=== PATIENT | female | born 2000 | race Caucasian/White ===

== ENCOUNTER 2020-03-24 01:52 | Emergency (ER) | payer OTHER, SELFPAY ==
[2020-03-24 02:02] VITALS: BP 133/85; PULSE 91; RESP 16; TEMP 36.5; O2SAT 98
[2020-03-24 02:08] VITALS: RESP 16
--- NOTE | 2020-03-24 02:10 | ED.GENADUL_ITS ---
Discharge Plan Disposition Patient Disposition: HOME Condition: Good Discharge Details Chief Complaint: GenMedical Clinical Impression: Acute alcohol intoxication Primary Care Provider: None,None ED Provider: Fabiano Saldana Home Meds and New Rx's Prescriptions: Continued lamotrigine [Lamictal] 200 mg Tablet 200 mg PO DAILY RF: 0 methylphenidate HCl [Concerta] 54 mg Tablet Extended Release 24hr 54 mg PO DAILY RF: 0 quetiapine [Seroquel] 100 mg Tablet 150 mg PO QHS RF: 0 albuterol sulfate [ProAir HFA] 90 mcg/actuation Hfa Aerosol Inhaler 2 puff INHALATION QID PRNRF: 0 Discharge Instructions Instructions: Alcohol Intoxication (ED) Additional Instructions: At this time you are intoxicated with alcohol. The alcohol has likely caused mild alcoholic gastritis which caused the vomiting. You are currently not a toxic level of alcohol intoxication. It is important to rest, drink plenty of fluids, and avoid any alcohol for the next 48 hours at least. If you notice any worsening of your symptoms, or any new symptoms such as vomiting, diarrhea, fever, chills, shortness of breath, chest pain, numbness, weakness, or fainting , please return immediately to the emergency department for reevaluation. Please follow up with your primary care provider as soon as possible for reassessment and reevaluation. As always, it was a pleasure participating in your medical care today. Medical Decision Making 20-year-old female with a past medical history of allergy induced asthma, skin hypersensitivity disorder, anxiety and panic attack, presents today for evaluation of intoxication. Patient states that it was her 20st birthday yesterday, and according to the patient Jamaal wanted to make it the most special of days ever for her. Patient and HER-2 friends state that today she has had 2 hard mics lemonades, a couple shots harder alcohol, and then went with some other friends where she benefits more drinking. Her friends were there who stated that all friends were trustworthy people with no foul intentions. This evening the patient had one episode of vomiting, she took her nighttime medications of Seroquel Lamictal and Concerta. Jamaal her friend was concerned that she may be too intoxicated and she was brought to the ER for further assessment and medical evaluation to make sure that there would not be too much of an interaction between her medications and alcohol. Aside for this the patient has no other complaints. She denies any concerns of self-harm, or harm from others. She denies any homicidal or suicidal ideations. She denies any IV or illicit drug use tonight. No other complaints or modifying factors at this time. Physical exam demonstrates an intoxicated female with no other signs of significant concerning abnormal neurologic changes. No evidence of trauma, no trauma to the groin area, mouth or neck. Patient denies any IV or illicit drug use, in addition to this the patient's friends also deny any other substances of that nature. Patient blows 150 for her current alcohol level. This appears clinically identical to her current intoxicated state. No signs of overdose or severe iatrogenic reaction of her medications with the alcohol requiring contin ued observation or intervention. At this time the patient signs and symptoms are clinically consistent with mild intoxication. Patient will be discharged to the care of her friends, who after a prolonged discussion with them/Jamaal, seems generally concerned for the interesting wellbeing of the patient. They will monitor her closely throughout the night. The patient makes it clear that she feels very safe and content with this plan. I have extensively reviewed the treatment plan and discharge instructions with the patient and their friends. I have addressed all patient concerns at this time. The patient and friend was made aware of what symptoms to monitor for that would warrant a return to the emergency department. Discussed the plan with the patient and friend, they demonstrate verbal understanding and agreement with our assessment and plan at this time. HPI General Date/Time Provider Initiated Documentation: 03/24/20 01:58 . HPI Narrative: 20-year-old female with a past medical history of allergy induced asthma, skin hypersensitivity disorder, anxiety and panic attack, presents today for evaluation of intoxication. Patient states that it was her 20st birthday yesterday, and according to the patient Jamaal wanted to make it the most special of days ever for her. Patient and HER-2 friends state that today she has had 2 hard mics lemonades, a couple shots harder alcohol, and then went with some other friends where she benefits more drinking. Her friends were there who stated that all friends were trustworthy people with no foul intentions. This evening the patient had one episode of vomiting, she took her nighttime medications of Seroquel Lamictal and Concerta. Jamaal her friend was concerned that she may be too intoxicated and she was brought to the ER for further assessment and medical evaluation to make sure that there would not be too much of an interaction between her medications and alcohol. Aside for this the patient has no other complaints. She denies any concerns of self-harm, or harm from others. She denies any homicidal or suicidal ideations. She denies any IV or illicit drug use tonight. No other complaints or modifying factors at this time. Related Data Home Medications Medication Instructions Recorded Confirmed albuterol sulfate [ProAir HFA] 2 puff INHALATION QID PRN 03/24/20 03/24/20 lamotrigine [Lamictal] 200 mg PO DAILY 03/24/20 03/24/20 methylphenidate HCl [Concerta] 54 mg PO DAILY 03/24/20 03/24/20 quetiapine [Seroquel] 150 mg PO QHS 03/24/20 03/24/20 General Stated Complaint: GenMedical PÉREZ: 3 Review of Systems All systems reviewed & are unremarkable except as noted in HPI and below PFSH Social History Smoking/Tobacco Use Status: Current every day Tobacco Type: e-cigarettes Alcohol Intake: current Alcohol Intake frequency: holidays/special occasions only Drug use: Occasionally Substance use type: marijuana Do you feel safe at home: Yes Do you feel safe in your relationship?: Yes Exam Narrative Exam Narrative: 1.Const: Well-nourished, Well-developed, appearing stated age 2.Eyes: PERRL, no conjunctival injection, and symmetrical lids. 3.ENT: Atraumatic external nose and ears. Moist MM. Neck: Symmetric, trachea midline, No thyromegaly. 4.CVS: +S1/S2, No murmurs or gallops. Peripheral pulses 2+ and equal in all extremities. Brisk capillary refill in all extremities. 5.RESP: Unlabored respiratory effort. Clear to auscultation bilaterally. No wheezes rales or rhonchi 6.GI: Soft, Nontender/Nondistended, No hepatosplenomegaly. No guarding or rebound. 7.MSK: Normocephalic/Atraumatic, Extremities w/o deformity or ttp No cyanosis or clubbing, Normal movement of all extremities 8.Skin: Warm, Dry. No rashes or lesions. 9.Neuro: battery installer II-XII grossly intact. Sensation grossly intact, no focal neurologic deficits. Mildly intoxicated but no signs of significant ataxia, severely altered mental status, or concerning abnormality. 10.Psych: (AAO) x3. Appropriate mood and affect Course Vital Signs Vital signs: Vital Signs Temperature 36.5 C 03/24/20 02:02 Pulse 91 H 03/24/20 02:02 Respiratory Rate 16 03/24/20 02:02 Blood Pressure 133/85 03/24/20 02:02 Pulse Oximetry 98 03/24/20 02:02 Temperature 36.5 C 03/24/20 02:02 Temperature Source Skin 03/24/20 02:02 Pulse 91 H 03/24/20 02:02 Respiratory Rate 16 03/24/20 02:02 Blood Pressure 133/85 03/24/20 02:02 Blood Pressure Position Supine 03/24/20 02:02 Pulse Oximetry 98 03/24/20 02:02 Oxygen Delivery Method Room Air 03/24/20 02:02 Oxygen Flow Rate 0 03/24/20 02:02 Pain Level 0 03/24/20 02:02
== END 2020-03-24 02:20 | disposition home or self-care (01) ==
PROVIDERS: Emergency Provider Student in an Organized Health Care Education/Training Program
DX: F10.120 Alcohol abuse with intoxication, uncomplicated (principal); K29.20 Alcoholic gastritis without bleeding; R11.10 Vomiting, unspecified
CPT/HCPCS: 99282; 99283

== ENCOUNTER 2020-03-24 16:30 | Emergency (ER) | payer OTHER, SELFPAY ==
--- NOTE | 2020-03-24 16:32 | ED.GENADUL_ITS ---
Discharge Plan Disposition Patient Disposition: HOME Condition: Good Discharge Details Chief Complaint: Nausea/Vomit/Diar Clinical Impression: Nausea & vomiting Primary Care Provider: None,None ED Provider: Mary Mae Home Meds and New Rx's Prescriptions: New ondansetron 4 mg tablet,disintegrating 4 mg PO Q6H PRN (Reason: nausea and vomiting) Qty: 10 RF: 0 Continued lamotrigine [Lamictal] 200 mg Tablet 200 mg PO DAILY RF: 0 methylphenidate HCl [Concerta] 54 mg Tablet Extended Release 24hr 54 mg PO DAILY RF: 0 quetiapine [Seroquel] 100 mg Tablet 150 mg PO QHS RF: 0 albuterol sulfate [ProAir HFA] 90 mcg/actuation Hfa Aerosol Inhaler 2 puff INHALATION QID PRNRF: 0 Discharge Instructions Instructions: Acute Nausea and Vomiting (ED) Additional Instructions: Please continue to encourage frequent sips of fluids. You may use the Zofran as prescribed to help with any recurrent nausea or vomiting. Discharge Data Discharge Date/Time-TO BE ENTERED AT DEPARTURE: 03/24/20 17:30 Medical Decision Making Patient is a pleasant 20-year-old female presents today with chief complaint of hangover. She was seen here around 2 AM when she was acutely intoxicated. States that since that time she has vomited approximately 5 times. She states she is able to keep down some fluids in between these episodes. Has not had much of an appetite. She denies any headache. No abdominal pain. Denies any melena, hematochezia or hematemesis. She is concerned with the persistent vomiting. Patient has past medical history significant for asthma, skin hypersensitivity disorder, anxiety. Patient states that last night was her first time she never been intoxicated as heavily as she was. She denies any chest pain, difficulty breathing, shortness of breath. On exam, she appears nontoxic. She does appear slightly dry. Normal lung exam. Normal cardiac exam. Abdomen is nontender and benign. Patient I discussed treatment options. Patient is very anxious and does not want to have any IVs placed, no hydration. Discussed treatment options. I do feel that ODT Zofran is best option for her. She does not appear acutely ill. She slightly tachycardic but otherwise stable. She was given return precautions. Encouraged follow-up with primary care. Encouraged that she abstain from large quantities of alcohol in the future. Patient feels improved after zofran, able to take sips of fluids. Will have her continue with this as needed. Encourage hydration. Return precautions discussed. All of her questions and concerns were adddressed, she is in agreement with this plan. HPI General Mode of arrival: ambulatory . Date/Time Provider Initiated Documentation: 03/24/20 16:32 . Limitations to Documentation: no limitations . Information obtained by: patient and RN notes reviewed . History of Present Illness 20 year old F presents to the emergency department with the chief complaint of nausea and vomiting, described as moderate, and is localized to the abdomen. Patient started experiencing this hour(s) (began very early this morning) and it has been constant. No relieving factors improve symptom(s), No exacerbating factors reported . Patient notes no other symptoms.. Patient did receive the following treatments prior to arrival, none Related Data Home Medications Medication Instructions Recorded Confirmed albuterol sulfate [ProAir HFA] 2 puff INHALATION QID PRN 03/24/20 03/24/20 lamotrigine [Lamictal] 200 mg PO DAILY 03/24/20 03/24/20 methylphenidate HCl [Concerta] 54 mg PO DAILY 03/24/20 03/24/20 ondansetron 4 mg PO Q6H PRN #10 tab 03/24/20 quetiapine [Seroquel] 150 mg PO QHS 03/24/20 03/24/20 Previous Rx's Medication Instructions Recorded ondansetron 4 mg PO Q6H PRN #10 tab 03/24/20 Allergies Allergy/AdvReac Type Severity Reaction Status Date / Time No Known Allergies Allergy Unverified 03/24/20 16:38 General PÉREZ: 3 Review of Systems Constitutional Constitutional: Reports as per HPI, Denies chills, Denies fatigue, Denies fever(s) and Denies headache(s) ENT Ears, Nose, Mouth, and Throat: Denies headache(s) Cardiovascular Cardiovascular: Reports as per HPI, Denies chest pain and Denies dyspnea Respiratory Respiratory: Reports as per HPI, Denies cough and Denies dyspnea Gastrointestinal Gastrointestinal: Reports as per HPI Musculoskeletal Musculoskeletal: Reports as per HPI and Denies back pain Integumentary/Breasts Skin/Breast: Reports as per HPI and Denies rash Neurologic Neurologic: Reports as per HPI and Denies headache(s) Endocrine Endocrine: Denies fatigue [facility] Social History Smoking/Tobacco Use Status: Current every day Tobacco Type: e-cigarettes Alcohol Intake: current Alcohol Intake frequency: holidays/special occasions only Drug use: Occasionally Substance use type: marijuana Do you feel safe at home: Yes Do you feel safe in your relationship?: Yes Exam Const General: cooperative, healthy appearing, comfortable, no acute distress and well developed Nutritional Appearance: average body habitus and well nourished Orientation: alert and awake HENTN Head: normal to inspection Mouth: moist mucous membranes Resp Effort & Inspection: normal respiratory effort, able to speak in complete sentences and no respiratory distress Auscultation: clear to auscultation bilaterally, no rales, no rhonchi and no wheezes Cardio Rate: regular rate Rhythm: regular rhythm Heart Sounds: S1 normal and S2 normal GI Inspection: normal to inspection Palpation: soft Percussion: normal to percussion Auscultation: normal bowel sounds Back/Spine/Pelvis Back: no CVA tenderness Skin General skin exam: no rashes or lesions noted Trauma: no lacerations or abrasions Neuro General: patient alert and patient awake Cognition: normal cognition Speech: speech normal Gait: normal gait Psych Appearance: grossly normal and well kempt Mental Status: mental status grossly normal Speech and Movement: speech and movement normal
[2020-03-24 16:33] VITALS: BP 136/73; PULSE 93; RESP 12; TEMP 36.7; O2SAT 98
[2020-03-24] MEDS: Ondansetron O.D.T. 4 MG TABEF PO (16:49)
== END 2020-03-24 17:30 | disposition home or self-care (01) ==
PROVIDERS: Emergency Provider Physician Assistant
DX: R11.2 Nausea with vomiting, unspecified (principal); F10.129 Alcohol abuse with intoxication, unspecified; E86.0 Dehydration
CPT/HCPCS: 99283

== ENCOUNTER 2022-05-30 08:38 | Emergency (ER) | payer OTHER, SELFPAY ==
[2022-05-30 08:53] VITALS: BP 128/76; PULSE 105; RESP 18; TEMP 38.5; O2SAT 99
--- NOTE | 2022-05-30 10:30 | DI.RAD_ITS ---
Exam(s) XR FEMUR RT EXAM: XR FEMUR RT CLINICAL HISTORY: bruise R thigh, r/o fx. TECHNIQUE: 2D digital imaging was performed. AP and lateral views. COMPARISON: No exams were available for comparison FINDINGS: BONES: No acute fracture is present. No bony destructive lesion is seen. Visualized portion of knee a nd hip joints are unremarkable. SOFT TISSUE: Normal. IMPRESSION: Unremarkable radiographs of the right femur. DATA REPOSITORY: RADIATION DOSE DELIVERED:
[2022-05-30] MEDS: Acetaminophen 500 MG TAB 1000 MG PO (11:30)
[2022-05-30] MEDS: Ibuprofen 600 MG TAB PO (11:31)
--- NOTE | 2022-05-30 12:26 | ED.GENADUL_ITS ---
Discharge Plan Disposition Patient Disposition: HOME Condition: Stable Discharge Details Clinical Impression: Exudative pharyngitis, Contusion of right thigh Primary Care Provider: Melissa,Local ED Provider: Isamar Petersen Home Meds and New Rx's Prescriptions: New amoxicillin 500 mg capsule 500 mg PO BID 10 Days Qty: 20 0RF Continued lamotrigine [Lamictal] 200 mg Tablet 200 mg PO DAILY methylphenidate HCl [Concerta] 54 mg Tablet Extended Release 24hr 54 mg PO DAILY quetiapine [Seroquel] 100 mg Tablet 150 mg PO QHS albuterol sulfate [ProAir HFA] 90 mcg/actuation Hfa Aerosol Inhaler 2 puff INHALATION QID PRN lorazepam 0.5 mg Tablet 0.5 mg PO PRN PRN ondansetron 4 mg tablet,disintegrating 4 mg PO Q6H PRN (Reason: nausea and vomiting) Qty: 10 0RF Discharge Instructions Instructions: Pharyngitis (ED), Contusion in Adults (ED) Additional Instructions: Your rapid strep, COVID and influenza tests today are negative. You still may have another form of strep throat which is a bacterial infection treated with antibiotics. You could also have mononucleosis which is a viral infection. You also potentially still could have COVID as COVID tests can be false negative. Your x-ray today shows no evidence of fracture. Drink plenty of fluids and get plenty of rest. Alternate tylenol and motrin as needed and directed for pain. A prescription for antibiotics has been sent electronically to your pharmacy to take as directed until finished. Follow-up with your primary care doctor in 1 week. Return to the emergency department with any worsening or new concerning symptoms. Discharge Data Discharge Date/Time-TO BE ENTERED AT DEPARTURE: 05/30/22 13:04 Discharge Physician: Isamar Petersen Medical Decision Making 22-year-old female presents with right thigh pain after caught her pants on a fe nce while jumping over it 2 days ago. She is also complaining of fever, body aches, headache and sore throat this morning. Temp 101.3 on arrival. Heart rate 105. Oxygen saturation respiratory rate within normal limits. Patient appears comfortable and nontoxic. She is speaking in full sentences without drooling, trismus or submandibular swelling. She does have bilateral tonsillar edema, erythema and exudates. Lungs are clear bilaterally. No meningeal signs. Right medial thigh has an area of ecchymosis approximately 4 x 10 cm extending from proximal to mid thigh. There is no deformity or evidence of cellulitis or rash. Patient referred for right femur x-ray which was negative. Suspect a contusion. SARS Covid antigen test negative for COVID and influenza. Rapid strep negative. Discussed with patient that her presentation could be consistent with mono but she is declining mono screening blood test as she states she is afraid of needles. Discussed other possibilities still include COVID or strep pharyngitis B, C or G. Will cover with antibiotics for possibility of another type of strep. Discussed possibility of rash in setting of antibiotics with a possible diagnosis of mononucleosis. Throat culture pending. Advised to push fluids, rest, alternate Tylenol and Motrin. Advised to apply ice to her right thigh. Advised to follow up with the primary care doctor for re-evaluation. Usual and customary return precautions given prior to discharge. Medical Records Medical records reviewed: Yes I reviewed the patient's medical records. Imaging Data Radiologic Study: Radiologist's impression: ?XR FEMUR RT CLINICAL HISTORY:? bruise R thigh, r/o fx. TECHNIQUE:? 2D digital imaging was performed.? AP and lateral views. COMPARISON:? No exams were available for comparison FINDINGS: BONES: No acute fracture is present. No bony destructive lesion is seen. Visualized portion of knee and hip joints are unremarkable. SOFT TISSUE: Normal. IMPRESSION: Unremarkable radiographs of the right femur. Lab Data Lab results reviewed: Yes I reviewed the patient's lab results. Labs: 05/30/22 09:47 Pharynx Group A Streptococcus Culture - Pending HPI General Mode of arrival: ambulatory . Date/Time Provider Initiated Documentation: 05/30/22 09:49 . Limitations to Documentation: no limitations . Information obtained by: patient . HPI Narrative: Patient is a 22-year-old female who presents with right thigh injury after her thigh was caught on a fence while jumping over it 2 days ago. She is also complaining of feeling feverish, headache, sore throat and body aches since earlier this morning. She has not taken any Tylenol or ibuprofen. She denies any known exposure to mononucleosis. She states she has been able to ambulate on her leg but with pain. Related Data Home Medications Medication Instructions Recorded Confirmed albuterol sulfate 90 mcg/actuation 2 puff inhalation QID PRN 03/24/20 05/30/22 aerosol inhaler (ProAir HFA) lamotrigine 200 mg tablet 200 mg PO DAILY 03/24/20 05/30/22 (Lamictal) methylphenidate HCl 54 mg 54 mg PO DAILY 03/24/20 05/30/22 tablet,extended release 24 hr (Concerta) ondansetron 4 mg disintegrating 4 mg PO Q6H PRN nausea and 03/24/20 05/30/22 tablet vomiting #10 tabs quetiapine 100 mg tablet (Seroquel) 150 mg PO QHS 03/24/20 05/30/22 amoxicillin 500 mg capsule 500 mg PO BID 10 days #20 caps 05/30/22 lorazepam 0.5 mg tablet 0.5 mg PO PRN PRN 05/30/22 05/30/22 Previous Rx's Medication Instructions Recorded ondansetron 4 mg disintegrating 4 mg PO Q6H PRN nausea and 03/24/20 tablet vomiting #10 tabs amoxicillin 500 mg capsule 500 mg PO BID 10 days #20 caps 05/30/22 Allergies Allergy/AdvReac Type Severity Reaction Status Date / Time No Known Allergies Allergy Unverified 05/30/22 08:57 General Stated Complaint: GenMedical PÉREZ: 4 Review of Systems All systems reviewed & are unremarkable except as noted in HPI and below Constitutional Constitutional: Reports as per HPI, Reports body ache(s), Denies chills, Reports fever(s) and Reports headache(s) Eyes Eyes: Denies blurry vision ENT Ears, Nose, Mouth, and Throat: Denies dizziness, Reports headache(s), Reports sore throat and Denies throat swelling Cardiovascular Cardiovascular: Denies chest pain and Denies dyspnea Respiratory Respiratory: Denies cough and Denies dyspnea Gastrointestinal Gastrointestinal: Denies abdominal pain, Denies diarrhea and Denies vomiting Genitourinary Genitourinary: Denies hematuria and Denies dysuria Musculoskeletal Musculoskeletal: Denies back pain and Denies numbness Comments: Right thigh pain Integumentary/Breasts Skin/Breast: Denies lesions and Denies rash Neurologic Neurologic: Denies dizziness, Reports headache(s), Denies localized weakness and Denies numbness Allergic/Immunologic Allergic/Immunologic: Denies throat swelling PFSH All Active Problems (Updated 05/30/22 @ 12:52 by Isamar Petersen DO) Exudative pharyngitis (Acute) Contusion of right thigh (Acute) Medical History (Updated 05/30/22 @ 12:52 by Isamar Petersen DO) Anxiety Asthma Social History Smoking/Tobacco Use Status: Former Tobacco Use Smoking risk assessment performed?: Yes Alcohol Intake: current Alcohol Intake frequency: holidays/special occasions only Drug use: Never Substance use type: does not use Do you feel safe at home: Yes Do you feel safe in your relationship?: Yes Exam Const General: cooperative, healthy appearing and no acute distress Orientation: alert, awake and oriented x3 HENMT Head: normal to inspection Ears: hearing grossly normal bilaterally, external ears normal and TM's normal bilaterally Face and sinus: normal facial exam Throat: uvula midline, no peritonsillar masses and posterior oropharynx abnormal edema, erythema and exudates Eyes General: appearance normal, both eyes and all related structures Pupils: PERRL EOM: EOM intact bilaterally Neck Neck: normal visual inspection and No submandibular swelling Lymphatic: no lymphadenopathy noted Chest Chest: normal inspection of the chest and no tenderness Resp Effort & Inspection: normal respiratory effort and able to speak in complete sentences Auscultation: clear to auscultation bilaterally Cardio Rate: regular rate Rhythm: regular rhythm GI Inspection: normal to inspection Palpation: soft, not firm, not rigid and nontender Auscultation: normal bowel sounds Back/Spine/Pelvis Thoracic/Lumbar Spine: thoracic and lumbar spine normal to inspection Pelvis: no pain with anterior-posterior compression Skin General skin exam: no rashes or lesions noted Neuro General: patient alert, patient awake and patient oriented x3 Cognition: normal cognition Speech: speech normal Motor: muscle tone normal throughout Sensory Exam: no sensory deficits noted Extrem General: normal to inspection, full ROM, capillary refill normal, no calf tenderness bilaterally and no edema Upper/lower leg/hip images: 1. 4cm x 10cm area of tender ecchymoses on R medial thigh extending from proximal to mid thigh. No open wounds. No erythema, induration, fluctuance. Psych Appearance: grossly normal Mental Status: mental status grossly normal Speech and Movement: speech and movement normal Affect: normal affect Course Vital Signs Vital signs: Vital Signs Temperature 101.3 F H 10/24/22 08:53 Pulse 105 H 05/30/22 08:53 Respiratory Rate 18 05/30/22 08:53 Blood Pressure 128/76 05/30/22 08:53 Pulse Oximetry 99 05/30/22 08:53 Temperature 101.3 F H 05/30/22 08:53 Temperature Source Tympanic 05/30/22 08:53 Pulse 105 H 05/30/22 08:53 Respiratory Rate 18 05/30/22 08:53 Respiratory Effort Non-Labored 05/30/22 08:59 Blood Pressure 128/76 05/30/22 08:53 Blood Pressure Position Sitting 05/30/22 08:53 Pulse Oximetry 99 05/30/22 08:53 Oxygen Delivery Method Room Air 05/30/22 08:53 Oxygen Flow Rate 0 05/30/22 08:53 Lab/Test Results Lab/Test Results: 05/30/22 09:47 Pharynx Group A Streptococcus Culture - Pending POC- Test(urine) Negative POC Strep Test-AVINASH(Rapid) Start: 05/30/22 09:04 Freq: Status: Active Protocol: Document 05/30/22 09:04 HERLINDA (Rec: 05/30/22 09:42 HERLINDA [id number]) Strep test-AVINASH(Rapid)-POC POC-Strep test-AVINASH (Rapid) Negative POC-Strep test-AVINASH (Rapid) Negative PAWSS Have you Been Recently Intoxicated or Drunk Within the Last 30 days?: No Have you Ever Experienced Previous Episodes of Alcohol Withdrawal?: No Have you ever Experienced Withdrawal Seizures?: No Have you ever Experienced Delirium Tremens(DT)s?: No Have you ever undergone Alcohol Rehabilitation Treatment (i.e, inpt ot outpatient treatment programs)?: No Have you ever Experienced Blackouts?: No Have you ever Combined Alcohol with other Downers within the last 90 days?: No Have you ever Combined Alcohol with any other Substance of Abuse during the last 90 days?: No Positive Blood Alcohol level on Presentation? [PCS.BAL]: No Evidence of Increased Autonomic Activity (i.e. HR>120, tremor, sweating, agitation, nausea)?: No Result: 0
[2022-05-30] MEDS: Dexamethasone 10 MG/ML VIAL PO (12:37)
[2022-05-30 12:55] VITALS: BP 125/86; PULSE 64; RESP 16; TEMP 36.8; O2SAT 98
[2022-05-30 18:50] VITALS: RESP 18
== END 2022-05-30 13:04 | disposition home or self-care (01) ==
PROVIDERS: Emergency Provider Physician Assistant
DX: J02.9 Acute pharyngitis, unspecified (principal); S70.11XA Contusion of right thigh, initial encounter; W22.09XA Striking against other stationary object, initial encounter; Z20.822 Contact with and (suspected) exposure to COVID-19; R50.9 Fever, unspecified
CPT/HCPCS: 73552; 81025; 87880; 99283; 87081; J1100